=== PATIENT | female | born 1985 | race African-American/Black ===

== ENCOUNTER 2021-09-25 22:24 | Emergency (ER) | payer MEDICAID, OTHER ==
[~2021-09-25] VITALS: Ht 165.1 cm; Wt 110.0 kg
[2021-09-25] MEDS ORDERED: METHYLPREDNISOLONE SOD SUCC 125 MG/2 ML VIAL IV STA (22:38)
[2021-09-25] MEDS ORDERED: ALBUTEROL (0.083%) 2.5MG/3ML NEB HHN STA (22:38)
[2021-09-25] MEDS ORDERED: IPRATROPIUM BROMIDE (0.02%) 0.5MG/2.5ML NEB HHN STA (22:38)
[2021-09-25 23:21] LABS: HEMATOCRIT. 33.6 % (36.0-48.0); HEMOGLOBIN. 10.5 g/dL (12.0-16.0); MEAN CORPUSCULAR HEMOGLOBIN 22.8 pg (28.0-32.0); MEAN CORPUSCULAR VOLUME 73.3 fL (81.0-99.0); MEAN PLATELET VOLUME 6.9 fl (7.4-10.4); PLATELET 325 x1000/uL (130-400); RED BLOOD CELL COUNT 4.58 mill/uL (4.2-5.4)
[2021-09-25 23:30] LABS: CHLORIDE 103 mEq/L (98-107)
[2021-09-26] MEDS ORDERED: ACETAMINOPHEN 325MG TABLET PO NR (01:41)
[2021-09-26] MEDS ORDERED: ALBUTEROL (0.083%) 2.5MG/3ML NEB HHN NR (01:45)
[2021-09-26] MEDS ORDERED: LEVOFLOXACIN 750MG PREMIX 150 ML IV NR (01:45)
[2021-09-26] MEDS ORDERED: IPRATROPIUM BROMIDE (0.02%) 0.5MG/2.5ML NEB HHN NR (01:45)
[2021-09-26] MEDS ORDERED: HYDROCODONE/ACETAMINOPHEN 5/325MG TABLET PO STA (02:24)
[2021-09-26] MEDS ORDERED: MORPHINE SULFATE 4 MG/ML CPJ (NOT FOR IM USE) IV STA (02:34)
[2021-09-26 02:35] LABS: PLATELET ESTIMATE NORMAL
[2021-09-26] MEDS ORDERED: ACETAMINOPHEN 325MG TABLET PO PRN ×2 (07:15)
[2021-09-26] MEDS ORDERED: DOCUSATE SODIUM 100MG CAPSULE PO PRN (07:15)
[2021-09-26] MEDS ORDERED: GUAIFENESIN 200MG/10ML SUGAR FREE UDC PO PRN (07:15)
[2021-09-26] MEDS ORDERED: DEXTROSE 50% WATER 50ML SYRINGE IV PRN (07:15)
[2021-09-26] MEDS ORDERED: CLONIDINE 0.1MG TABLET PO PRN (07:15)
[2021-09-26] MEDS ORDERED: KETOROLAC 15MG/ML VIAL IV PRN (07:15)
[2021-09-26] MEDS ORDERED: NA PHOS,M-B/NA PHOS,DI-BA ENEMA 118ML PR PRN (07:15)
[2021-09-26] MEDS ORDERED: IPRATROPIUM/ALBUTEROL 0.5-3(2.5)MG/3ML NEB NEB PRN (07:15)
[2021-09-26] MEDS ORDERED: ONDANSETRON HCL 4MG/2ML INJ IV PRN (07:15)
[2021-09-26] MEDS ORDERED: MAGNESIUM/ALUMINUM HYDROXIDE/SIMETHICONE 30ML UDC PO PRN (07:15)
[2021-09-26] MEDS ORDERED: NITROGLYCERIN 0.4MG TABLET SL SL PRN (07:15)
[2021-09-26] MEDS ORDERED: GUAIFENESIN/DM 600MG/30MG ER TAB 12HR PO SCH (08:00)
[2021-09-26] MEDS ORDERED: IPRATROPIUM/ALBUTEROL 0.5-3(2.5)MG/3ML NEB HHN SCH (08:00)
[2021-09-26] MEDS ORDERED: INSULIN LISPRO 100 UNITS/ML SUBCUT SCH (08:20)
[2021-09-26 08:24] LABS: HCG SCREEN NEGATIVE
[2021-09-26 08:31] LABS: ETHANOL BLOOD < 10 mg/dL; T4 FREE 0.96 ng/dL (0.76-1.46); TOTAL IRON BINDING CAPACITY 381 ug/dL (250-450)
[2021-09-26] MEDS ORDERED: ENOXAPARIN 40MG/0.4ML SYR SUBCUT SCH (09:00)
[2021-09-26] MEDS ORDERED: BLOOD SUGAR DIAGNOSTIC STRIP TEST SCH (09:00)
[2021-09-26] MEDS ORDERED: FAMOTIDINE 20MG TABLET PO SCH (09:00)
[2021-09-26 09:37] LABS: CLARITY URINE CLEAR (CLEAR); COLOR URINE YELLOW (YELLOW); KETONES URINE TRACE (NEGATIVE); LEUKOCYTE ESTERASE URINE NEGATIVE (NEGATIVE); NITRITE URINE NEGATIVE (NEGATIVE); OCCULT BLOOD URINE NEGATIVE (NEGATIVE); PH URINE 6.5 (4.5-8.0); PROTEIN URINE NEGATIVE (NEGATIVE); SPECIFIC GRAVITY URINE 1.028 (1.005-1.030); UROBILINOGEN URINE 0.2 E.U./dL (0.2-1.0)
[2021-09-26] MEDS ORDERED: INSULIN GLARGINE 100 UNITS/ML SUBCUT SCH (10:00)
[2021-09-26 10:18] VITALS: BP 134/88
[2021-09-26 10:28] LABS: *AMPHETAMINES SCREEN URINE NEGATIVE (NEGATIVE); *BARBITURATES SCREEN URINE NEGATIVE (NEGATIVE); *BENZODIAZEPINES SCREEN URINE NEGATIVE (NEGATIVE); *COCAINE SCREEN URINE NEGATIVE (NEGATIVE); METHADONE URINE SCREEN NEGATIVE (NEGATIVE); PHENCYCLIDINE URINE SCREEN NEGATIVE (NEGATIVE)
[2021-09-26 10:49] LABS: CANNABINOID URINE SCREEN PRESUMTIVE POSITIVE (NEGATIVE); OPIATES URINE SCREEN PRESUMTIVE POSITIVE (NEGATIVE)
[2021-09-26] MEDS ORDERED: METHYLPREDNISOLONE SOD SUCC 125 MG/2 ML VIAL IV SCH (14:00)
[2021-09-26 18:35] LABS: FOLIC ACID (FOLATE) SERUM 8.2 ng/mL (>5.38)
[2021-09-26] MEDS ORDERED: ZOLPIDEM TARTRATE 5MG TABLET PO PRN (21:00)
[2021-09-27] MEDS ORDERED: LEVOFLOXACIN 750MG PREMIX 150 ML IV SCH (06:00)
== END 2021-09-26 10:45 | disposition left against medical advice (07) ==
LOC: ER 22:24 → CANRESERV 09-26 09:16 → ENRESERV 09-26 09:16 → ER 09-26 10:45 → CANBEDREQ 09-26 11:18
DX: J18.9 Pneumonia, unspecified organism (principal); E11.9 Type 2 diabetes mellitus without complications; D86.9 Sarcoidosis, unspecified; F12.10 Cannabis abuse, uncomplicated; E66.9 Obesity, unspecified; Z68.41 Body mass index [BMI] 40.0-44.9, adult; Z20.822 Contact with and (suspected) exposure to COVID-19
CPT/HCPCS: 36415; 71045; 80053; 80305; 80320; 81003; 82607; 82746; 82962; 83036; 83540; 83550; 83605; 83880; 84145; 84439; 84443; 84703; 85025; 85651; 86140; 87040; 87077; 87426; 93005; 94640; 96361; 96365; 96375; 99285; J1815; J1885; J1956; J2270; J2930; Z7610; G0480

== ENCOUNTER 2021-10-11 16:32 | Inpatient (IN) | payer OTHER ==
[~2021-10-11] VITALS: Ht 172.7 cm; Wt 148.8 kg
[2021-10-11] MEDS ORDERED: ALBUTEROL (0.083%) 2.5MG/3ML NEB HHN STA (16:56)
[2021-10-11] MEDS ORDERED: METHYLPREDNISOLONE SOD SUCC 125 MG/2 ML VIAL IV STA (16:56)
[2021-10-11] MEDS ORDERED: IPRATROPIUM BROMIDE (0.02%) 0.5MG/2.5ML NEB HHN STA (16:56)
[2021-10-11 18:06] LABS: CHLORIDE 113 mEq/L (98-107)
[2021-10-11 18:10] LABS: EOSINOPHILS % 1.2 % (0.0-5.0); HEMATOCRIT. 28.5 % (36.0-48.0); HEMOGLOBIN. 8.9 g/dL (12.0-16.0); MEAN CORPUSCULAR HEMOGLOBIN 23.7 pg (28.0-32.0); MEAN CORPUSCULAR VOLUME 75.6 fL (81.0-99.0); MEAN PLATELET VOLUME 7.3 fl (7.4-10.4); MONOCYTES % 5.2 % (2.0-8.0); NEUTROPHILS % 80.6 % (40.0-76.0); PLATELET 262 x1000/uL (130-400); RED BLOOD CELL COUNT 3.77 mill/uL (4.2-5.4); RED CELL DISTRIBUTION WIDTH 22.9 % (11.6-14.6)
[2021-10-11 18:15] LABS: ETHANOL BLOOD < 10 mg/dL
[2021-10-11 19:01] LABS: PLATELET ESTIMATE NORMAL
[2021-10-11] MEDS ORDERED: METHYLPREDNISOLONE SOD SUCC 125 MG/2 ML VIAL IV NR (21:00)
[2021-10-11] MEDS ORDERED: ACETAMINOPHEN WITH CODEINE 300/30MG TABLET PO ONE (22:30)
[2021-10-11 23:31] LABS: *AMPHETAMINES SCREEN URINE NEGATIVE (NEGATIVE); *BARBITURATES SCREEN URINE NEGATIVE (NEGATIVE); *BENZODIAZEPINES SCREEN URINE NEGATIVE (NEGATIVE); METHADONE URINE SCREEN NEGATIVE (NEGATIVE); OPIATES URINE SCREEN NEGATIVE (NEGATIVE); PHENCYCLIDINE URINE SCREEN NEGATIVE (NEGATIVE)
[2021-10-11 23:32] LABS: *COCAINE SCREEN URINE PRESUMTIVE POSITIVE (NEGATIVE); CANNABINOID URINE SCREEN PRESUMTIVE POSITIVE (NEGATIVE)
[2021-10-11 23:55] VITALS: BP 145/80
[2021-10-12] VITALS: BP 128/64
[2021-10-12] MEDS: HYDROCODONE/ACETAMINOPHEN 5/325MG TABLET PO PRN ×3 (03:09→23:48)
[2021-10-12 04:00] VITALS: BP 103/62
[2021-10-12] MEDS: METHYLPREDNISOLONE SOD SUCC 40 MG/ML VIAL IV SCH ×3 (06:25→21:01)
[2021-10-12] MEDS: IPRATROPIUM/ALBUTEROL 0.5-3(2.5)MG/3ML NEB HHN SCH ×3 (09:13→20:07)
[2021-10-12 12:00] VITALS: BP 110/62
[2021-10-12 12:39] LABS: HEMATOCRIT. 31.1 % (36.0-48.0); HEMOGLOBIN. 9.4 g/dL (12.0-16.0); MEAN CORPUSCULAR HEMOGLOBIN 23.3 pg (28.0-32.0); RED BLOOD CELL COUNT 4.04 mill/uL (4.2-5.4)
[2021-10-12 12:48] LABS: CHLORIDE 110 mEq/L (98-107)
[2021-10-12 14:26] LABS: NUCLEATED RED BLOOD CELLS 1 /100 WBC
[2021-10-12 14:28] LABS: PLATELET ESTIMATE NORMAL
[2021-10-12 16:00] VITALS: BP 122/60
[2021-10-12] MEDS ORDERED: ALBUTEROL 6.7GM HFA INHALER ORI PRN (18:30)
[2021-10-12] MEDS ORDERED: ALBUTEROL (0.083%) 2.5MG/3ML NEB HHN PRN (18:30)
[2021-10-12 20:00] VITALS: BP 128/82
[2021-10-12] MEDS: BUDESONIDE 0.5MG/2ML NEB HHN SCH (20:06)
[2021-10-12] MEDS ORDERED: SILD20TA MT (23:41)
[2021-10-12] MEDS ORDERED: DEXA6TAB PO (23:41)
[2021-10-12] MEDS ORDERED: SULF1TAB48 PO (23:41)
[2021-10-13] VITALS: BP 128/65
[2021-10-13] MEDS: IPRATROPIUM/ALBUTEROL 0.5-3(2.5)MG/3ML NEB HHN SCH ×4 (01:37→20:33)
[2021-10-13] MEDS: HYDROCODONE/ACETAMINOPHEN 5/325MG TABLET PO PRN ×2 (03:47→09:45)
[2021-10-13 04:00] VITALS: BP 136/72
[2021-10-13] MEDS: METHYLPREDNISOLONE SOD SUCC 40 MG/ML VIAL IV SCH ×2 (05:03→20:18)
[2021-10-13 08:00] VITALS: BP 137/75
[2021-10-13] MEDS ORDERED: LIDOCAINE HCL/PF 1% 10 MG/ML 5ML VIAL ONE (08:07)
[2021-10-13] MEDS: BUDESONIDE 0.5MG/2ML NEB HHN SCH ×3 (08:43→20:33)
[2021-10-13 12:00] VITALS: BP 125/71
[2021-10-13] MEDS ORDERED: SILDENAFIL CITRATE 20MG TABLET PO SCH (12:30)
[2021-10-13 16:00] VITALS: BP 127/87
[2021-10-13] MEDS ORDERED: NALOXONE HCL 0.4MG/ML VIAL IV PRN (17:15)
[2021-10-13] MEDS: HYDROCODONE/ACETAMINOPHEN 10/325MG TABLET PO PRN ×2 (17:19→23:44)
[2021-10-13 20:00] VITALS: BP 135/86
[2021-10-13] MEDS: SILDENAFIL CITRATE 20MG TABLET PO SCH (23:43)
[2021-10-13 23:54] LABS: UCG SCREEN NEGATIVE
[2021-10-14] VITALS: BP 133/82
[2021-10-14] MEDS: IPRATROPIUM/ALBUTEROL 0.5-3(2.5)MG/3ML NEB HHN SCH ×5 (03:20→20:31)
[2021-10-14 04:00] VITALS: BP 129/85
[2021-10-14] MEDS: SILDENAFIL CITRATE 20MG TABLET PO SCH ×3 (06:00→21:12)
[2021-10-14] MEDS: HYDROCODONE/ACETAMINOPHEN 10/325MG TABLET PO PRN ×3 (06:01→21:11)
[2021-10-14 08:00] VITALS: BP 119/72
[2021-10-14] MEDS: BUDESONIDE 0.5MG/2ML NEB HHN SCH ×2 (08:18→20:31)
[2021-10-14] MEDS: METHYLPREDNISOLONE SOD SUCC 40 MG/ML VIAL IV SCH ×2 (08:54→21:11)
[2021-10-14] MEDS: FUROSEMIDE 40MG/4ML VIAL IVP SCH ×2 (11:30→13:24)
[2021-10-14 12:00] VITALS: BP 125/85
[2021-10-14 16:00] VITALS: BP 124/77
[2021-10-14 20:00] VITALS: BP 129/59
[2021-10-15] VITALS: BP 131/78
[2021-10-15] MEDS: IPRATROPIUM/ALBUTEROL 0.5-3(2.5)MG/3ML NEB HHN SCH ×2 (01:27→08:23)
[2021-10-15] MEDS: HYDROCODONE/ACETAMINOPHEN 10/325MG TABLET PO PRN ×2 (03:41→11:23)
[2021-10-15 04:00] VITALS: BP 126/67
[2021-10-15] MEDS: SILDENAFIL CITRATE 20MG TABLET PO SCH ×2 (05:51→13:31)
[2021-10-15 08:00] VITALS: BP 118/63
[2021-10-15] MEDS: BUDESONIDE 0.5MG/2ML NEB HHN SCH (08:24)
[2021-10-15] MEDS: METHYLPREDNISOLONE SOD SUCC 40 MG/ML VIAL IV SCH (09:17)
[2021-10-15 12:00] VITALS: BP 120/75
[2021-10-15 16:00] VITALS: BP 124/77
[2021-10-17 13:11] LABS: ANGIOTENSION CONVERTING ENZYME 61 U/L (14-82)
[2021-10-17 17:11] LABS: ANA IFA Negative (.)
== END 2021-10-15 18:55 | disposition left against medical advice (07) | DRG 145 ==
LOC: ER 16:32 → 7EST 19:09 → EDBEDREQTM 20:04 → EDBEDREQ 20:04 → 7EST 10-14 19:46
PROVIDERS: ADMIT Family Medicine; ATTEND Family Medicine
PROC: 05HY33Z Insertion of Infusion Device into Upper Vein, Percutaneous Approach (ICD-10-PCS; principal; 2021-10-13)
DX: J68.0 Bronchitis and pneumonitis due to chemicals, gases, fumes and vapors (principal); J96.21 Acute and chronic respiratory failure with hypoxia; I27.20 Pulmonary hypertension, unspecified; E24.9 Cushing's syndrome, unspecified; L03.221 Cellulitis of neck; F14.10 Cocaine abuse, uncomplicated; Z20.822 Contact with and (suspected) exposure to COVID-19; D64.9 Anemia, unspecified; D86.9 Sarcoidosis, unspecified; E66.01 Morbid (severe) obesity due to excess calories; F12.10 Cannabis abuse, uncomplicated; F17.210 Nicotine dependence, cigarettes, uncomplicated; E55.9 Vitamin D deficiency, unspecified; E03.9 Hypothyroidism, unspecified; K52.9 Noninfective gastroenteritis and colitis, unspecified; Z99.81 Dependence on supplemental oxygen; Z68.42 Body mass index [BMI] 45.0-49.9, adult; Z53.29 Procedure and treatment not carried out because of patient's decision for other reasons; Z79.52 Long term (current) use of systemic steroids; Z91.018 Allergy to other foods; Z59.00 Homelessness unspecified
CPT/HCPCS: 36415; 36573; 71045; 71260; 80053; 80305; 80320; 81025; 82164; 83880; 84484; 85025; 86256; 86431; 87070; 87426; 93005; 93306; 94640; 99285; C1725; C1892; C1893; C9803; J1940; J2920; J2930; J3490; J7626; G0480

== ENCOUNTER 2021-11-26 00:52 | Emergency (ER) | payer MEDICAID, OTHER ==
[~2021-11-26] VITALS: Ht 172.7 cm; Wt 151.0 kg
[~2021-11-26 00:52] MED LIST: DEXA6TAB PO; SILD20TA MT; SULF1TAB48 PO
[2021-11-26] MEDS ORDERED: ASPIRIN 81MG TABLET PO ONE (01:15)
[2021-11-26 02:01] LABS: *AMPHETAMINES SCREEN URINE NEGATIVE (NEGATIVE); *BARBITURATES SCREEN URINE NEGATIVE (NEGATIVE); *BENZODIAZEPINES SCREEN URINE NEGATIVE (NEGATIVE); *COCAINE SCREEN URINE NEGATIVE (NEGATIVE); METHADONE URINE SCREEN NEGATIVE (NEGATIVE); OPIATES URINE SCREEN NEGATIVE (NEGATIVE); PHENCYCLIDINE URINE SCREEN NEGATIVE (NEGATIVE)
[2021-11-26 02:10] LABS: CANNABINOID URINE SCREEN PRESUMTIVE POSITIVE (NEGATIVE)
[2021-11-26 02:14] LABS: EOSINOPHILS % 2.4 % (0.0-5.0); HEMATOCRIT. 35.9 % (36.0-48.0); HEMOGLOBIN. 11.6 g/dL (12.0-16.0); LYMPHOCYTES % 15.5 % (20.0-50.0); MEAN CORPUSCULAR VOLUME 77.5 fL (81.0-99.0); MEAN PLATELET VOLUME 7.8 fl (7.4-10.4); MONOCYTES % 7.6 % (2.0-8.0); NEUTROPHILS % 73.5 % (40.0-76.0); PLATELET 359 x1000/uL (130-400); RED BLOOD CELL COUNT 4.63 mill/uL (4.2-5.4); RED CELL DISTRIBUTION WIDTH 21.7 % (11.6-14.6)
[2021-11-26 02:24] LABS: CHLORIDE 107 mEq/L (98-107)
[2021-11-26 02:28] LABS: D-DIMER 2.15 mg/L FEU (<0.50); PARTIAL THROMBOPLASTIN TIME 28.5 sec (23.4-31.0); PROTHROMBIN TIME 10.7 sec (9.6-11.0)
[2021-11-26 02:36] LABS: ETHANOL BLOOD < 10 mg/dL
[2021-11-26] MEDS ORDERED: IOHEXOL-350 100 ML BOTTLE ONE (03:49)
[2021-11-26 04:55] VITALS: BP 110/66
== END 2021-11-26 05:01 | disposition home or self-care (01) ==
LOC: ER 00:52
DX: R06.02 Shortness of breath (principal); F12.10 Cannabis abuse, uncomplicated; J45.909 Unspecified asthma, uncomplicated; E66.01 Morbid (severe) obesity due to excess calories; Z86.711 Personal history of pulmonary embolism; Z68.43 Body mass index [BMI] 50.0-59.9, adult; Z91.018 Allergy to other foods; Z20.822 Contact with and (suspected) exposure to COVID-19
CPT/HCPCS: 36415; 71045; 71275; 80053; 80305; 80320; 81025; 83605; 83690; 83880; 84145; 84484; 85025; 85379; 85610; 85730; 87040; 87426; 93005; 99285; C9803; Q9967; Z7610; G0480